=== PATIENT | female | born 1975 | race Caucasian/White ===

== ENCOUNTER 2019-07-18 22:09 | Emergency (ER) | payer SELFPAY ==
[2019-07-18] MEDS ORDERED: predniSONE 20 MG TAB ONE (22:46)
== END 2019-07-18 22:53 | disposition home or self-care (01) ==
LOC: MADERS 22:09
DX: S80.861A Insect bite (nonvenomous), right lower leg, initial encounter (principal); F17.210 Nicotine dependence, cigarettes, uncomplicated; W57.XXXA Bitten or stung by nonvenomous insect and other nonvenomous arthropods, initial encounter
CPT/HCPCS: 99281; J7512

== ENCOUNTER 2020-11-12 07:43 | Emergency (ER) | payer SELFPAY ==
[2020-11-13 01:01] LABS: SARS-CoV-2 PCR by NAA Not Detected (NotDetected)
== END 2020-11-12 09:02 | disposition home or self-care (01) ==
LOC: MADERS 07:43
DX: R11.2 Nausea with vomiting, unspecified (principal); R50.9 Fever, unspecified; R53.81 Other malaise; R05 Cough; M79.10 Myalgia, unspecified site; Z20.822 Contact with and (suspected) exposure to COVID-19; F17.210 Nicotine dependence, cigarettes, uncomplicated
CPT/HCPCS: 71046; U0003; U0005

== ENCOUNTER 2020-11-18 23:00 | Emergency (ER) | payer SELFPAY ==
[2020-11-18] MEDS ORDERED: Ondansetron ODT 4 MG TAB ONE (23:50)
[2020-11-18] MEDS ORDERED: Clindamycin 150 MG CAP ONE ×2 (23:50→23:56)
[2020-11-18] MEDS ORDERED: Ketorolac Tromethamine 30 MG/ML VIAL ONE (23:50)
== END 2020-11-19 00:15 | disposition home or self-care (01) ==
LOC: MADERS 23:00
DX: K04.7 Periapical abscess without sinus (principal); I10 Essential (primary) hypertension; F17.210 Nicotine dependence, cigarettes, uncomplicated; E66.9 Obesity, unspecified; Z71.6 Tobacco abuse counseling
CPT/HCPCS: 96372; 99406; J1885; Q0162

== ENCOUNTER 2021-02-26 12:17 | Emergency (ER) | payer OTHER, SELFPAY | END 2021-02-26 14:00 | disposition home or self-care (01) | LOC: MADERS 12:17 | DX: S40.021A Contusion of right upper arm, initial encounter (principal); F17.210 Nicotine dependence, cigarettes, uncomplicated; E66.9 Obesity, unspecified; W01.0XXA Fall on same level from slipping, tripping and stumbling without subsequent striking against object, initial encounter; Z68.45 Body mass index [BMI] 70 or greater, adult ==

== ENCOUNTER 2021-08-31 16:47 | Emergency (ER) | payer SELFPAY | END 2021-08-31 17:25 | disposition home or self-care (01) | LOC: MADERS 16:47 | DX: H60.92 Unspecified otitis externa, left ear (principal); J06.9 Acute upper respiratory infection, unspecified; F17.210 Nicotine dependence, cigarettes, uncomplicated | CPT/HCPCS: 99283 ==

== ENCOUNTER 2021-11-26 04:42 | Emergency (ER) | payer SELFPAY ==
[2021-11-26] MEDS ORDERED: traMADol HCl 50 MG TAB ONE (05:39)
[2021-11-26] MEDS ORDERED: Ibuprofen 800 MG TAB ONE (05:39)
== END 2021-11-26 06:38 | disposition home or self-care (01) ==
LOC: MADERS 04:42
DX: S92.211A Displaced fracture of cuboid bone of right foot, initial encounter for closed fracture (principal); F17.210 Nicotine dependence, cigarettes, uncomplicated; W20.8XXA Other cause of strike by thrown, projected or falling object, initial encounter
CPT/HCPCS: 29515